=== PATIENT | male | born 2000 | race African-American/Black ===

== ENCOUNTER 2019-03-12 00:48 | Emergency (ER) | payer MEDICAID ==
[~2019-03-12] VITALS: Ht 188 cm; Wt 80.0 kg
[2019-03-12] MEDS ORDERED: LIDOCAINE HCL/EPINEPHRINE 1%-EPI 1:100,000 20 ML VIAL INFIL ONE (01:45)
[2019-03-12] MEDS ORDERED: LORAZEPAM 1MG TABLET PO ONE (01:45)
[2019-03-12 02:09] LABS: BASOPHILS % 0.3 % (0.0-2.0); EOSINOPHILS % 0.1 % (0.0-5.0); HEMATOCRIT. 47.1 % (42.0-52.0); LYMPHOCYTES % 9.6 % (20.0-50.0); MEAN CORPUSCULAR HEMOGLOBIN 27.6 pg (28.0-32.0); MEAN CORPUSCULAR VOLUME 81.1 fL (80.0-94.0); MEAN PLATELET VOLUME 8.1 fl (7.4-10.4); MONOCYTES % 11.5 % (2.0-8.0); NEUTROPHILS % 78.5 % (40.0-76.0); PLATELET 229 x1000/uL (130-400); RED BLOOD CELL COUNT 5.81 mill/uL (4.7-6.1); RED CELL DISTRIBUTION WIDTH 14.9 % (11.6-14.6)
[2019-03-12 02:16] LABS: CHLORIDE 104 mEq/L (98-107)
[2019-03-12 03:00] LABS: *AMPHETAMINES SCREEN URINE NEGATIVE (NEGATIVE); *BARBITURATES SCREEN URINE NEGATIVE (NEGATIVE)
[2019-03-12 03:01] LABS: *BENZODIAZEPINES SCREEN URINE NEGATIVE (NEGATIVE); *COCAINE SCREEN URINE NEGATIVE (NEGATIVE); CANNABINOID URINE SCREEN PRESUMTIVE POSITIVE (NEGATIVE); METHADONE URINE SCREEN NEGATIVE (NEGATIVE); OPIATES URINE SCREEN NEGATIVE (NEGATIVE); PHENCYCLIDINE URINE SCREEN NEGATIVE (NEGATIVE)
[2019-03-12] MEDS ORDERED: TETANUS, DIPHTHERIA, PERTUSSIS VAC/PF 0.5ML (>7YR OLD) IM ONE (03:15)
[2019-03-12] MEDS ORDERED: ACETAMINOPHEN 325MG TABLET PO ONE (03:15)
[2019-03-12 04:44] LABS: CLARITY URINE CLEAR (CLEAR); COLOR URINE YELLOW (YELLOW); KETONES URINE TRACE (NEGATIVE); LEUKOCYTE ESTERASE URINE NEGATIVE (NEGATIVE); NITRITE URINE NEGATIVE (NEGATIVE); OCCULT BLOOD URINE 1+ (NEGATIVE); PH URINE 7.5 (4.5-8.0); PROTEIN URINE NEGATIVE (NEGATIVE); UROBILINOGEN URINE 0.2 E.U./dL (0.2-1.0)
[2019-03-12 12:15] VITALS: BP 125/75
== END 2019-03-12 12:28 | disposition home or self-care (01) ==
LOC: ER 00:48
DX: S91.311A Laceration without foreign body, right foot, initial encounter (principal); S61.216A Laceration without foreign body of right little finger without damage to nail, initial encounter; F29 Unspecified psychosis not due to a substance or known physiological condition; F22 Delusional disorders; W26.0XXA Contact with knife, initial encounter; Y93.89 Activity, other specified; Y92.89 Other specified places as the place of occurrence of the external cause; Y99.8 Other external cause status
CPT/HCPCS: 12004; 36415; 73630; 80048; 80305; 80307; 80329; 81003; 85025; 90471; 90715; 99284; J3490; Z7610

== ENCOUNTER 2019-04-08 16:00 | Emergency (ER) | payer MEDICAID ==
[~2019-04-08] VITALS: Ht 203.2 cm; Wt 85.0 kg
[2019-04-08 16:11] VITALS: BP 122/85
== END 2019-04-08 17:10 | disposition home or self-care (01) ==
LOC: ER 16:00
DX: Z48.02 Encounter for removal of sutures (principal)
CPT/HCPCS: 99281